=== PATIENT | female | born 1975 | race African-American/Black ===

== ENCOUNTER 2016-06-24 21:40 | Emergency (ER) | payer MEDICARE, OTHER ==
[~2016-06-24] VITALS: Ht 162.6 cm; Wt 78.5 kg
[~2016-06-24 21:40] MED LIST: CYCL10TA2 PO; GABA600T2 PO; HYDR-2762 PO; HYDR25TA9 PO; MELO-156 PO; OXYC-323 PO; PRED50TA PO; TRAZ150T55 PO; TRIA15CR3 TP
[2016-06-24 21:53] VITALS: BP 163/105
--- NOTE | 2016-06-24 22:21 | PHYS DOC ---
Past Medical History Past Medical History: Anxiety, Asthma, Hypertension, Migraines, Other Additional Past Medical Histor: chronic back pain, gastritis, IBS, hernia Past Surgical History: Cholecystectomy, , Other Additional Past Surgical Histo: back surgery, carpal tunnel, hernia removal Alcohol Use: Occasionally Drug Use: Marijuana Adult General Chief Complaint Chief Complaint: SKIN RASH/ABSCESS [facility] HPI Patient is a 40 year old female presents emergency department stating that she has an abscess on her left lower buttocks area. She states that she noticed it tonight. She states that she squeezed the area and got a little bit of yellow drainage and discharge from the site. She denies any fever, chills or any nausea or vomiting. Review of Systems Review of Systems Constitutional: Denies fever or chills [] Eyes: Denies change in visual acuity, redness, or eye pain [] HENT: Denies nasal congestion or sore throat [] Respiratory: Denies cough or shortness of breath [] Cardiovascular: No additional information not addressed in HPI [] GI: Denies abdominal pain, nausea, vomiting, bloody stools or diarrhea [] : Denies dysuria or hematuria [] Musculoskeletal: Denies back pain or joint pain [] Integument: Denies rash or skin lesions. Abscess to the left buttock area Neurologic: Denies headache, focal weakness or sensory changes [] Current Medications Current Medications Current Medications Medications (Trade) Dose Ordered Sig/Levy Start Time Stop Time Status Last Admin Dose Admin Diphtheria/ Tetanus/Acell Pertussis (Boostrix) 0.5 ml ONCE ONCE 06/24/16 22:30 06/24/16 22:30 DC Lidocaine/Sodium Bicarbonate (Buffered Lidocaine 1%) 20 ml 1X ONCE 06/24/16 23:00 06/24/16 23:01 06/24/16 22:39 20 ML Allergies Allergies Allergies Coded Allergies Type Severity Reaction Last Updated Verified No Known Drug Allergies 05/31/14 No Physical Exam Physical Exam Constitutional: Well developed, well nourished, no acute distress, non-toxic appearance. [] HENT: Normocephalic, atraumatic, bilateral external ears normal, oropharynx moist, no oral exudates, nose normal. [] Eyes: PERRLA, EOMI, conjunctiva normal, no discharge. [] Neck: Normal range of motion, no tenderness, supple, no stridor. [] Cardiovascular:Heart rate regular rhythm, no murmur [] Lungs & Thorax: Bilateral breath sounds clear to auscultation [] Skin: Warm, dry, no erythema, no rash. Patient with abscess to the left buttock area size approximately pea size. Back: No tenderness Extremities: No tenderness, no cyanosis, no clubbing, ROM intact, no edema. [] Neurologic: Alert and oriented X 3, normal motor function, normal sensory function, no focal deficits noted. [] Psychologic: Affect normal, judgement normal, mood normal. [] Current Patient Data Vital Signs Vital Signs Date Time Temp Pulse Resp B/P Pulse Ox O2 Delivery O2 Flow Rate FiO2 06/24/16 21:53 98.2 78 18 100 Room Air 98.2 EKG EKG [] Radiology/Procedures Radiology/Procedures [] Course & Med Decision Making Course & Med Decision Making Pertinent Labs and Imaging studies reviewed. (See chart for details) Patient was encouraged to use warm moist packs to the area 4 times a day for 20 minutes at a time. She'll be placed on Bactrim 1 tablet twice a for the next 10 days she'll be provided with hydrocodone in which she was instructed will cause drowsiness do not take any be alert and oriented. Patient was also instructed to use Tylenol or ibuprofen. Patient will be discharged home in stable condition signs symptoms to return back to emergency department been provided. [] Dragon Disclaimer Dragon Disclaimer This electronic medical record was generated, in whole or in part, using a voice recognition dictation system. Departure Departure Impression: Primary Impression: Left buttock abscess Disposition: 01 HOME, SELF-CARE Condition: STABLE Referrals: TRINIDAD BUTLER (PCP) Patient Instructions: Abscess, [id number] Additional Instructions: Activity as tolerated. Hydrocodone will cause drowsiness do not take any be alert and oriented. Tylenol and ibuprofen may also help with pain and discomfort. Medications as prescribed. Warm moist packs to the area 4 times a day for 20 minutes at a time. Keep the area clean and dry. Follow-up to primary care physician next 3-5 days. Return back to emergency prior signs symptoms of become worse. Scripts Hydrocodone/Apap 5-325 ([place] 5-325 Tablet)1 Each Tablet1 Tab PO PRN Q6HRS PRN PAIN #5 TAB Prov:GUILLERMO VIEYRA NP 06/24/16 Sulfamethoxazole/Trimethoprim (Bactrim Ds Tablet)1 Each Tablet1 Tab PO BID #20 TAB Prov:GUILLERMO VIEYRA NP 06/24/16 Incision and Drainage Incision and Drainage : Site: left buttock Blade Size: 11 I & D Procedure: betadine prep Progress Site was injected with 2 mL of 1% lidocaine. Area was cleaned with Betadine. # 11 blade was used to incise the area with small amount of thick yellow drainage noted. Dressing applied by nursing staff GUILLERMO VIEYRA NP Jun 24, 2016 22:21
[2016-06-24] MEDS ORDERED: DIPHTH,PERTUSS(ACELL),TET TOX 0.5 ML DISP.SYRIN. VAX IM ONE (22:30)
[2016-06-24] MEDS ORDERED: SULF1TAB24 PO (22:49)
[2016-06-24] MEDS ORDERED: HYDR-971 PO (22:49)
[2016-06-24] MEDS ORDERED: LIDOCAINE 1% / SOD BICARB 8.4% 20 ML VIAL. IJ ONE (23:00)
== END 2016-06-24 22:53 | disposition home or self-care (01) ==
LOC: ER 21:40
DX: L02.31 Cutaneous abscess of buttock (principal); K58.9 Irritable bowel syndrome, unspecified; J45.909 Unspecified asthma, uncomplicated; I10 Essential (primary) hypertension; G89.29 Other chronic pain; F41.9 Anxiety disorder, unspecified; G43.909 Migraine, unspecified, not intractable, without status migrainosus; F12.10 Cannabis abuse, uncomplicated
CPT/HCPCS: 10060; 99283-25

== ENCOUNTER → 2016-10-08 | Outpatient (CLI) | payer MEDICARE, OTHER ==
[~2016-10-08] MED LIST changes: +HYDR-971 PO; -MELO-156 PO; +MELO7.5T29 PO; +SULF1TAB24 PO; +TRAZ150T49 PO; -TRAZ150T55 PO
--- NOTE | 2016-10-08 10:26 | RAD ---
EXAM: DIGITAL DIAGNOSTIC RT, BREAST RIGHT HISTORY: Follow-up right breast mass. COMPARISON: Bilateral mammogram 04/28/2016. Right breast ultrasound 04/28/2016. This study was interpreted with the benefit of Computerized Aided Detection (CAD). The breast parenchyma shows scattered fibroglandular densities. Breast parenchyma level B. FINDINGS: The previously identified posterior small, well-circumscribed mass in the right breast retroareolar region to 6:00 is less apparent on current examination, possibly obscured by overlying breast tissue and positioning. No suspicious dominant mass, suspicious microcalcifications, or architectural distortion is identified in either breast. Further evaluation was performed of the right breast by medicine technologist. Ultrasound imaging was performed of the right breast at the 2:30, 5 cm from nipple. Again seen is a complex cystic lesion with some internal echogenicity. This has maximum dimension of 5 mm (previously 4 mm). This is thought unchanged. Additional imaging was performed of the right breast at 4:00, 3 cm from nipple. A cystic, mildly complex lesion is also seen which measures 4 mm in maximum dimension (previously maximum dimension was 8 mm). Any differences may be due to plane of imaging and/or interval reduction in size. IMPRESSION: 1. Previously identified mammographic mass is less apparent on current examination, which may be from positioning/obscuration by overlying breast parenchyma. 2. 2 small mildly complex cyst cystic lesions identified in the right breast on ultrasound are similar to slightly decreased in size from previous study. 3. Recommend follow-up bilateral diagnostic mammogram and right breast ultrasound in 6 months. BI-RADS CATEGORY: 3 PROBABLY BENIGN FINDING(S)-SHORT INTERVAL FOLLOW-UP SUGGESTED RECOMMENDED FOLLOW-UP: 6M 6 MONTH FOLLOW-UP PQRS compliance statement: Patient information was entered into a reminder system with a target due date for the next mammogram. Mammography is a sensitive method for finding small breast cancers, but it does not detect them all and is not a substitute for careful clinical examination. A negative mammogram does not negate a clinically suspicious finding and should not result in delay in biopsying a clinically suspicious abnormality. "Our facility is accredited by the [employer] Mammography Program."
== END | disposition home or self-care (01) ==
LOC: MAMMO 09:40
PROVIDERS: ATTEND Family Medicine
DX: R92.8 Other abnormal and inconclusive findings on diagnostic imaging of breast (principal); N63 Unspecified lump in breast
CPT/HCPCS: 76641; G0206; 77065

== ENCOUNTER 2016-10-21 09:33 | Emergency (ER) | payer MEDICARE, OTHER ==
[~2016-10-21] VITALS: Ht 160 cm; Wt 78.5 kg
[2016-10-21 09:40] VITALS: BP 139/80
--- NOTE | 2016-10-21 10:24 | PHYS DOC ---
Past Medical History Past Medical History: Anxiety, Asthma, Hypertension, Migraines, Other Additional Past Medical Histor: chronic back pain, gastritis, IBS, hernia Past Surgical History: Cholecystectomy, , Other Additional Past Surgical Histo: back surgery, carpal tunnel, hernia removal Alcohol Use: Occasionally Drug Use: Marijuana Adult General Chief Complaint Chief Complaint: ABDOMINAL PAIN HPI HPI Patient is a 41 year old female who presents with vaginal bleeding and crampy lower abdominal and back pain. Patient states she finished her usual menstrual period about 1 or 1-1/2 weeks ago. It was normal. She then started having vaginal spotting and light vaginal bleeding which does seem like menstrual bleeding but it's at a abnormal time for her so she was concerned. She did not have an abnormal amount of vaginal discharge before she started bleeding. Her cramping and pain does not seem unusual for a menstrual period. She has had unprotected sex, does not believe she is but she could be. She denies nausea or vomiting, fever or chills. She's had no UTI symptoms. Patient is not on any kind of hormones, she does not have implanted or IUD for control. Review of Systems Review of Systems Constitutional: Denies fever or chills [] Eyes: Denies change in visual acuity, redness, or eye pain [] HENT: Denies nasal congestion or sore throat [] Respiratory: Denies cough or shortness of breath [] GI: As in history of present illness : As in history of present illness Musculoskeletal: Denies back pain or joint pain [] Integument: Denies rash or skin lesions [] Neurologic: Denies headache, focal weakness or sensory changes [] Allergies Allergies Allergies Coded Allergies Type Severity Reaction Last Updated Verified No Known Drug Allergies 05/31/14 No Physical Exam Physical Exam Constitutional: Well developed, well nourished, no acute distress, non-toxic appearance. Alert, mentating normally. HENT: Normocephalic, atraumatic, bilateral external ears normal, nose normal. [ ] Eyes: conjunctiva normal, no discharge. [] Neck: Normal range of motion, no stridor. [] Abdomen: soft, no tenderness, no masses, no pulsatile masses. Nondistended. : Normal external genitalia. Vaginal exam with small amount of red blood. Cervix normal in appearance without cervicitis. Bimanual exam: No cervical motion tenderness. Uterus not enlarged or tender. Adnexa without masses or tenderness. Skin: Warm, dry, no erythema, no rash. [] Extremities: No tenderness, no cyanosis, no clubbing, ROM intact, no edema. [] Neurologic: Alert and oriented X 3, normal motor function, normal sensory function, no focal deficits noted. [] Current Patient Data Vital Signs Vital Signs Date Time Temp Pulse Resp B/P (MAP) Pulse Ox O2 Delivery O2 Flow Rate FiO2 10/21/16 09:40 98.5 89 16 139/80 (99) 99 Room Air 98.5 Lab Values Laboratory Tests Test 10/21/16 08:56 POC Urine HCG, Qualitative Hcg negative (Negative) EKG EKG [] Radiology/Procedures Radiology/Procedures [] Course & Med Decision Making Course & Med Decision Making Pertinent Labs and Imaging studies reviewed. (See chart for details) 41-year-old female who presents with vaginal bleeding and some cramping that is not at a typical time and her monthly cycle for her menstrual period. test negative. Pelvic exam is entirely benign and normal. GC and chlamydia were sent. I don't suspect that the patient has PID or needs antibiotics from her exam. I reassured the patient that sometimes people have vaginal bleeding at abnormal times, if she continues to do so she should see her [facility] specialist. See instructions for plan. [] Dragon Disclaimer Dragon Disclaimer This electronic medical record was generated, in whole or in part, using a voice recognition dictation system. Departure Departure Impression: Primary Impression: Vaginal bleeding between periods Disposition: HOME, SELF-CARE Condition: STABLE Referrals: TRI CERNA Jr, MD Patient Instructions: Abnormal Uterine Bleeding Additional Instructions: As we discussed, your test was negative. Your pelvic exam was very normal. I did send cultures for STDs. It does not appear that you have any kind of infection with a normal pelvic exam. As we discussed, it is pretty common to have bleeding at a time that is not a "normal period." If this just happens once and you go back to having normal periods, I would not worry about it. If this happens more than once or you have other irregular bleeding, you should see a [facility] doctor. I gave you a referral phone number, or you could try going to the health Department or [facility]. As we discussed, consider protection from since you are sexually active and do not want to get . JES MURCIA MD Oct 21, 2016 10:24
== END 2016-10-21 10:20 | disposition home or self-care (01) ==
LOC: ER 09:33
DX: N93.8 Other specified abnormal uterine and vaginal bleeding (principal); R10.30 Lower abdominal pain, unspecified; M54.9 Dorsalgia, unspecified; F41.9 Anxiety disorder, unspecified; J45.909 Unspecified asthma, uncomplicated; I10 Essential (primary) hypertension; G89.29 Other chronic pain; K58.9 Irritable bowel syndrome, unspecified; G43.909 Migraine, unspecified, not intractable, without status migrainosus; F12.10 Cannabis abuse, uncomplicated; Z90.49 Acquired absence of other specified parts of digestive tract
CPT/HCPCS: 81025; 87491; 87591; 99284

== ENCOUNTER 2017-01-22 18:43 | Emergency (ER) | payer MEDICARE, OTHER ==
[~2017-01-22] VITALS: Ht 162.6 cm; Wt 78.5 kg
[2017-01-22 20:01] VITALS: BP 143/89
--- NOTE | 2017-01-22 20:27 | PHYS DOC ---
Past Medical History Past Medical History: Anxiety, Asthma, Hypertension, Migraines, Other Additional Past Medical Histor: chronic back pain, gastritis, IBS, hernia Past Surgical History: Cholecystectomy, , Other Additional Past Surgical Histo: back surgery, carpal tunnel, hernia removal Alcohol Use: Occasionally Drug Use: Marijuana Adult General Chief Complaint Chief Complaint: DENTAL PROBLEM [facility] HPI Patient is a 41 year old female presents to the emergency department stating that she has having dental pain and discomfort. She states that she has a cracked tooth in which she's been doing with the pain for approximately 2 weeks. The #12 tooth appears to be cracked. Patient states that she has been taking Percocet in which she has for back pain and discomfort. Patient states that she has not had any fever, chills or any nausea or vomiting. Patient states she has not set up an appointment yet with a dentist. Review of Systems Review of Systems Constitutional: Denies fever or chills [] Eyes: Denies change in visual acuity, redness, or eye pain [] HENT: Denies nasal congestion or sore throat. Complaint of dental pain and discomfort. Respiratory: Denies cough or shortness of breath [] Cardiovascular: No additional information not addressed in HPI [] GI: Denies abdominal pain, nausea, vomiting, bloody stools or diarrhea [] : Denies dysuria or hematuria [] Musculoskeletal: Denies back pain or joint pain [] Integument: Denies rash or skin lesions [] Neurologic: Denies headache, focal weakness or sensory changes [] Endocrine: Denies polyuria or polydipsia [] Allergies Allergies Allergies Coded Allergies Type Severity Reaction Last Updated Verified No Known Drug Allergies 05/31/14 No Physical Exam Physical Exam Constitutional: Well developed, well nourished, no acute distress, non-toxic appearance. [] HENT: Normocephalic, atraumatic, bilateral external ears normal, oropharynx moist, no oral exudates, nose normal. Right tympanic membrane appears to be normal left tympanic membrane appears to be slightly bulging. Throat with no erythematous no exudate noted. Patient with #12 tooth that appears to be cracked. No redness or tenderness noted around the gumline. Patient with maxillary and facial tenderness noted bilaterally over the sinus area Eyes: PERRLA, EOMI, conjunctiva normal, no discharge. [] Neck: Normal range of motion, no tenderness, supple, no stridor. [] Cardiovascular:Heart rate regular rhythm, no murmur [] Lungs & Thorax: Bilateral breath sounds clear to auscultation [] Skin: Warm, dry, no erythema, no rash. [] Back: No tenderness Extremities: No tenderness, no cyanosis, no clubbing, ROM intact, no edema. [] Neurologic: Alert and oriented X 3, normal motor function, normal sensory function, no focal deficits noted. [] Psychologic: Affect normal, judgement normal, mood normal. [] Current Patient Data Vital Signs Vital Signs Date Time Temp Pulse Resp B/P (MAP) Pulse Ox O2 Delivery O2 Flow Rate FiO2 01/22/17 20:01 97.8 72 18 100 Room Air 97.8 EKG EKG [] Radiology/Procedures Radiology/Procedures [] Course & Med Decision Making Course & Med Decision Making Pertinent Labs and Imaging studies reviewed. (See chart for details) Patient states that she had taken Percocet at home with minimal relief. Recommended dental wax [id number]. She will be placed on Augmentin for sinusitis infection. Recommended following up with her dentist within the next week. Signs symptoms to return back to emergency department been provided. Patient agrees with discharge instructions treatment regimens and follow-up recommendations. All questions and concerns been answered at patient's bedside. [] Dragon Disclaimer Dragon Disclaimer This electronic medical record was generated, in whole or in part, using a voice recognition dictation system. Departure Departure Impression: Primary Impression: Sinusitis Additional Impression: Pain, dental Disposition: HOME, SELF-CARE Condition: STABLE Referrals: TRINIDAD BUTLER (PCP) Patient Instructions: Dental Pain, [id number], Sinusitis, [id number] Additional Instructions: Activity as tolerated. Medications as prescribed. Dental wax may be purchased [id number] to be placed over the tooth to help prevent increased pain and discomfort. You may also take Sudafed [id number] to help with sinus pressure. He may also use Mucinex DM to help with the sinus pain and discomfort by providing drainage. Follow-up the primary care physician in the week. Follow-up to dentist within the next week as well. Return back to emergency prior signs symptoms of become worse. Problem Qualifiers Primary Impression: Sinusitis Sinusitis location: unspecified location Chronicity: unspecified Qualified Codes: J32.9 - Chronic sinusitis, unspecified GUILLERMO VIEYRA [employer] Jan 22, 2017 20:27
[2017-01-22] MEDS ORDERED: AMOX1TAB61 PO (20:38)
== END 2017-01-22 20:38 | disposition home or self-care (01) ==
LOC: ER 18:43
DX: K08.89 Other specified disorders of teeth and supporting structures (principal); J32.9 Chronic sinusitis, unspecified; K03.81 Cracked tooth; G89.29 Other chronic pain; J45.909 Unspecified asthma, uncomplicated; I10 Essential (primary) hypertension; K58.9 Irritable bowel syndrome, unspecified; G43.909 Migraine, unspecified, not intractable, without status migrainosus
CPT/HCPCS: 99283

== ENCOUNTER 2017-04-06 23:16 | Emergency (ER) | payer MEDICARE ==
[~2017-04-06] VITALS: Ht 160 cm; Wt 78.5 kg
[~2017-04-06 23:16] MED LIST changes: +AMOX1TAB61 PO
[2017-04-07] MEDS ORDERED: diphenhydrAMINE 50 MG/ML VIAL IVP ONE
[2017-04-07] MEDS ORDERED: IV NORMAL SALINE 1000ML BAG 1,000 ML IV ONE
[2017-04-07] MEDS ORDERED: METOCLOPRAMIDE HCL 10 MG/2 ML VIAL. IV ONE
[2017-04-07] MEDS ORDERED: PROCHLORPERAZINE 10 MG/2 ML VIAL. IV ONE
[2017-04-07 02:44] VITALS: BP 128/72
--- NOTE | 2017-04-07 05:35 | PHYS DOC ---
Past Medical History Past Medical History: Anxiety, Asthma, Hypertension, Migraines, Other Additional Past Medical Histor: chronic back pain, gastritis, IBS, hernia Past Surgical History: Cholecystectomy, , Other Additional Past Surgical Histo: back surgery, carpal tunnel, hernia removal Alcohol Use: None Drug Use: None Adult General Chief Complaint Chief Complaint: HEADACHE HPI HPI Patient is a 41 year old AA female with history of chronic recurrent migraines who presents with acute onset migraine starting several hours prior to arrival. Headache is retro-orbital, radiates to temporal region. It is describing swelling and is associated nausea and light sensitivity and is consistent with previous migraine. Patient take a triptan with limited improvement. Reports continued nausea. No fever chills, neck pain, stiffness, rash. No other acute symptoms or complaints. [] Review of Systems Review of Systems ROS as per HPI. [] All other systems were reviewed and found to be within normal limits, except as documented in this note. Current Medications Current Medications Current Medications Medications (Trade) Dose Ordered Sig/Levy Start Time Stop Time Status Last Admin Dose Admin Diphenhydramine HCl (Benadryl) 50 mg 1X ONCE 04/07/17 00:00 04/07/17 00:01 DC 04/07/17 00:40 50 MG Metoclopramide HCl (Reglan Vial) 10 mg 1X ONCE 04/07/17 00:00 04/07/17 00:01 DC 04/07/17 00:39 10 MG Prochlorperazine Edisylate (Compazine) 10 mg 1X ONCE 04/07/17 00:00 04/07/17 00:01 DC 04/07/17 00:39 10 MG Sodium Chloride 1,000 ml @ 1,000 mls/hr 1X ONCE 04/07/17 00:00 04/07/17 00:59 DC 04/07/17 00:40 1,000 MLS/HR Allergies Allergies Allergies Coded Allergies Type Severity Reaction Last Updated Verified No Known Drug Allergies 05/31/14 No Physical Exam Physical Exam Constitutional: Well developed, well nourished, no acute distress, non-toxic appearance. [] HENT: Normocephalic, atraumatic, bilateral external ears normal, oropharynx moist, nose normal. [] Eyes: PERRLA, EOMI, photosensitivity. [] Neck: Normal range of motion, no tenderness. [] Cardiovascular:Heart rate regular rhythm, no murmur [] Lungs & Thorax: Bilateral breath sounds clear to auscultation [] Abdomen: Bowel sounds normal, soft. [] Skin: Warm, dry, no erythema, no rash. [] Back: No tenderness. [] Extremities: No tenderness. [] Neurologic: Alert and oriented X 3, cranial nerves II through XII grossly intact , normal motor function, normal sensory function, no focal deficits noted. [] Psychologic: Affect normal, judgement normal, mood normal. [] Current Patient Data Vital Signs Vital Signs Date Time Temp Pulse Resp B/P (MAP) Pulse Ox O2 Delivery O2 Flow Rate FiO2 04/07/17 02:44 70 20 100 04/07/17 00:00 98.5 158/87 (110) Room Air 98.5 Lab Values Laboratory Tests Test 04/06/17 23:44 POC Urine HCG, Qualitative Hcg negative (Negative) EKG EKG [] Radiology/Procedures Radiology/Procedures [] Course & Med Decision Making Course & Med Decision Making Pertinent Labs and Imaging studies reviewed. (See chart for details) [Neurologic deficits. Migraine resolved with treatment in the emergency department. Recommend home rest, he is to be follow-up.] Dragon Disclaimer Dragon Disclaimer This electronic medical record was generated, in whole or in part, using a voice recognition dictation system. Departure Departure Impression: Primary Impression: Migraine headache Disposition: 01 HOME, SELF-CARE Condition: GOOD Patient Instructions: Migraine Headache, [id number] Additional Instructions: Please go home and rest and increase your fluid intake. Follow up with your PCP. Return to the ED if new or worsening symptoms. TAMMIE LOW DO Apr 07, 2017 05:35
== END 2017-04-07 02:30 | disposition home or self-care (01) ==
LOC: ER 23:16
DX: G43.909 Migraine, unspecified, not intractable, without status migrainosus (principal); F41.9 Anxiety disorder, unspecified; J45.909 Unspecified asthma, uncomplicated; I10 Essential (primary) hypertension; G89.29 Other chronic pain; Z90.49 Acquired absence of other specified parts of digestive tract
CPT/HCPCS: 81025; 96361; 96374; 96375; 99284; J0780; J1200; J2765; J7030

== ENCOUNTER → 2017-06-20 | Outpatient (CLI) | payer BC | END | disposition home or self-care (01) | LOC: MAMMO 13:23 | DX: N63.10 Unspecified lump in the right breast, unspecified quadrant (principal); N63.20 Unspecified lump in the left breast, unspecified quadrant | CPT/HCPCS: 76641; 77066 ==

== ENCOUNTER 2017-07-31 14:02 | Emergency (ER) | payer BC ==
[2017-07-31 14:23] LABS: URINE HCG POC HCG NEGATIVE (Negative)
[2017-07-31 14:54] LABS: ADD MAN DIFF? NO
[2017-07-31 14:56] LABS: BASO # 0.1 x10^3/uL (0.0-0.2); BASO % 0 % (0-3); EOS # 0.1 x10^3/uL (0.0-0.7); EOS % 1 % (0-3); HEMATOCRIT 30.8 % (36.0-47.0); HEMOGLOBIN 9.9 g/dL (12.0-15.5); LYMPH # 1.9 x10^3/uL (1.0-4.8); LYMPH % 13 % (24-48); MEAN CORPUSCULAR HEMOGLOBIN 28 pg (25-35); MEAN CORPUSCULAR HGB CONC 32 g/dL (31-37); MEAN CORPUSCULAR VOLUME 85 fL (79-100); MONO # 1.3 x10^3/uL (0.0-1.1); MONO % 9 % (0-9); NEUT % 77 % (31-73); PLATELET COUNT 362 x10^3/uL (140-400); RED BLOOD COUNT 3.62 x10^6/uL (3.50-5.40); RED CELL DISTRIBUTION WIDTH 17.4 % (11.5-14.5); WHITE BLOOD COUNT 14.3 x10^3/uL (4.0-11.0)
[2017-07-31 14:58] LABS: BILIRUBIN,URINE NEGATIVE (NEG); CLARITY,URINE TURBID; COLOR,URINE YELLOW; GLUCOSE,URINE NEGATIVE (NEG); NITRITE,URINE POSITIVE (NEG); PH,URINE 5.5; PROTEIN,URINE 100 mg/dL (NEG-TRACE); UROBILINOGEN,URINE 0.2 mg/dL (0.2 mg/dL)
[2017-07-31 15:08] LABS: ANION GAP 8 (6-14); BLOOD UREA NITROGEN 12 mg/dL (7-20); BUN/CREATININE RATIO 17 (6-20); CALCIUM 8.5 mg/dL (8.5-10.1); CARBON DIOXIDE 27 mmol/L (21-32); CHLORIDE 103 mmol/L (98-107); CREATININE 0.7 mg/dL (0.6-1.0); GFR 111.6; GLUCOSE 110 mg/dL (70-99); POTASSIUM 3.5 mmol/L (3.5-5.1); SODIUM 138 mmol/L (136-145)
[2017-07-31 15:16] LABS: ALBUMIN 3.3 g/dL (3.4-5.0); ALBUMIN/GLOBULIN RATIO 0.7 (1.0-1.7); ALK PHOS 109 U/L (46-116); ALT (SGPT) 13 U/L (14-59); AST (SGOT) 11 U/L (15-37); LIPASE 147 U/L (73-393); TOTAL BILIRUBIN 0.4 mg/dL (0.2-1.0); TOTAL PROTEIN 7.8 g/dL (6.4-8.2)
[2017-07-31 15:31] LABS: BACTERIA,URINE MANY /HPF (0-FEW); RBC,URINE TNTC /HPF (0-2); SQUAMOUS EPITHELIAL CELL,UR FEW /LPF; WBC,URINE TNTC /HPF (0-4)
[2017-07-31] MEDS: IV NORMAL SALINE 1000ML BAG 1,000 ML IV (15:31)
[2017-07-31] MEDS: ONDANSETRON PF 4 MG/2 ML VIAL. IV (15:31)
[2017-07-31] MEDS: fentaNYL PF VIAL 100 MCG/2 ML VIAL IV (15:32)
[2017-07-31] MEDS: AZITHROMYCIN 250 MG TABLET. PO (17:00)
[2017-08-02 14:23] LABS: CHLAMYDIA PROBE Negative (Negative); GC PROBE Negative (Negative)
== END 2017-07-31 17:39 | disposition home or self-care (01) ==
LOC: ER 14:02
DX: N39.0 Urinary tract infection, site not specified (principal); N76.0 Acute vaginitis; B96.89 Other specified bacterial agents as the cause of diseases classified elsewhere; F41.9 Anxiety disorder, unspecified; J45.909 Unspecified asthma, uncomplicated; I10 Essential (primary) hypertension; G89.29 Other chronic pain; G43.909 Migraine, unspecified, not intractable, without status migrainosus; K58.9 Irritable bowel syndrome, unspecified; Z90.49 Acquired absence of other specified parts of digestive tract; Z87.891 Personal history of nicotine dependence
CPT/HCPCS: 36415; 80053; 81001; 81025; 83690; 85025; 87086; 87186; 87491; 87591; 96361; 96365; 96375; 99284-25; J0690; J2405; J3010; J7030; Q0111; Q0144

== ENCOUNTER 2019-03-31 13:03 | Emergency (ER) | payer BC, MEDICARE ==
[~2019-03-31] VITALS: Ht 162.6 cm; Wt 75.7 kg
[~2019-03-31 13:03] MED LIST changes: -GABA600T2 PO; +GABA600T7 PO; +HYDR-2145 PO; -HYDR-2762 PO; +HYDR-2765 PO; +HYDR-3164 PO; -HYDR-971 PO; -HYDR25TA9 PO; +METR500T PO; -OXYC-323 PO; +OXYC1TAB15 PO
[2019-03-31 13:36] VITALS: BP 156/95
[2019-03-31] MEDS ORDERED: KETOROLAC 30 MG/ML VIAL. IM STA (14:22)
[2019-03-31] MEDS ORDERED: LIDOCAINE 2% VISCOUS 15 ML SOLUTION. SWSW STA (14:22)
[2019-03-31] MEDS ORDERED: MAG HYDROX/ALUMINUM HYD/SIMETH 30 ML ORAL.SUSP PO STA (14:22)
[2019-03-31] MEDS ORDERED: AMOX1TAB61 PO (14:40)
--- NOTE | 2019-03-31 14:42 | PHYS DOC ---
Past Medical History Past Medical History: Anxiety, Asthma, Hypertension, Migraines, Other Additional Past Medical Histor: chronic back pain, gastritis, IBS, hernia Past Surgical History: Cholecystectomy, , Other Additional Past Surgical Histo: back surgery, L carpal tunnel, hernia removal Alcohol Use: None Drug Use: None Adult General Chief Complaint Chief Complaint: DENTAL PROBLEM HPI HPI Patient is a 43 year old female that presents with lower right-sided dental pain has been ongoing for 3 days. The patient's been taking Tylenol and oxycodone at home. The patient states that she's noticed mild facial swelling on the right side of her face. Rates her pain as 10 out of 10 in severity and sharp. Review of Systems Review of Systems Constitutional: Denies fever or chills [] Eyes: Denies change in visual acuity, redness, or eye pain [] HENT: Reports dental pain. Respiratory: Denies cough or shortness of breath [] Cardiovascular: No additional information not addressed in HPI [] GI: Denies abdominal pain, nausea, vomiting, bloody stools or diarrhea [] : Denies dysuria or hematuria [] Musculoskeletal: Denies back pain or joint pain [] Integument: Denies rash or skin lesions [] Neurologic: Denies headache, focal weakness or sensory changes [] Endocrine: Denies polyuria or polydipsia [] Complete systems were reviewed and found to be within normal limits, except as documented in this note. Current Medications Current Medications Current Medications Medications (Trade) Dose Ordered Sig/Levy Start Time Stop Time Status Last Admin Dose Admin Al Hydroxide/Mg Hydroxide (Mylanta Plus Xs) 30 ml 1X STAT 03/31/19 14:22 03/31/19 14:25 DC 03/31/19 14:32 30 ML Ketorolac Tromethamine (Toradol 30mg Vial) 30 mg 1X STAT 03/31/19 14:22 03/31/19 14:25 DC 03/31/19 14:32 30 MG Lidocaine HCl (Viscous Lidocaine) 15 ml 1X STAT 03/31/19 14:22 03/31/19 14:25 DC 03/31/19 14:32 15 ML Allergies Allergies Allergies Coded Allergies Type Severity Reaction Last Updated Verified No Known Drug Allergies 05/31/14 No Physical Exam Physical Exam Constitutional: Well developed, well nourished, no acute distress, non-toxic appearance. [] HENT: Normocephalic, atraumatic, bilateral external ears normal, oropharynx moist, no oral exudates, nose normal. Cavity to tooth 32, and 30. Eyes: PERRLA, EOMI, conjunctiva normal, no discharge. [] Neck: Normal range of motion, no tenderness, supple, no stridor. [] Cardiovascular:Heart rate regular rhythm, no murmur [] Lungs & Thorax: Bilateral breath sounds clear to auscultation [] Abdomen: Bowel sounds normal, soft, no tenderness, no masses, no pulsatile masses. [] Skin: Warm, dry, no erythema, no rash. [] Back: No tenderness, no CVA tenderness. [] Extremities: No tenderness, no cyanosis, no clubbing, ROM intact, no edema. [] Neurologic: Alert and oriented X 3, normal motor function, normal sensory function, no focal deficits noted. [] Psychologic: Affect normal, judgement normal, mood normal. [] EKG EKG [] Radiology/Procedures Radiology/Procedures [] Course & Med Decision Making Course & Med Decision Making Pertinent Labs and Imaging studies reviewed. (See chart for details) Will give Dental Balls, Toradol, and d/c home with Augmentin. Discussed she needs to follow up with Dentist. Dragon Disclaimer Dragon Disclaimer This electronic medical record was generated, in whole or in part, using a voice recognition dictation system. Departure Departure Impression: Primary Impression: Pain, dental Disposition: 01 HOME, SELF-CARE Condition: STABLE Referrals: TRINIDAD BUTLER (PCP) Patient Instructions: Carbamide Peroxide dental solution, Dental Caries Additional Instructions: Thank you for visiting [facility]. We appreciate you trusting us with your care. If any additional problems come up don't hesitate to return to visit us. Please follow up with your primary care provider so they can plan additional care if needed and know about the problem that you had. If symptoms worsen come back to the Emergency Department. Any concerning symptoms that start such as chest pain, shortness of air, weakness or numbness on one side of the body, running high fevers or any other concerning symptoms return to the ER. You have been prescribed an antibiotic today to help fight your infection. Please take all of the antibiotic as directed. If after 48 hours the infection is not improving, please return for more care. If the infection worsens, return to ER for additional care. Please follow up with dentist as soon as possible. Scripts Amoxicillin/Potassium Clav (AUGMENTIN 875-125 TABLET) 1 Each Tablet 1 TAB PO BID for 7 Days, #14 TAB 0 Refills Prov: JAMES GO APRN 03/31/19 JAMES GO APRN Mar 31, 2019 14:42
== END 2019-03-31 14:48 | disposition home or self-care (01) ==
LOC: ER 13:03
DX: K08.89 Other specified disorders of teeth and supporting structures (principal); R22.0 Localized swelling, mass and lump, head; J45.909 Unspecified asthma, uncomplicated; I10 Essential (primary) hypertension; G43.909 Migraine, unspecified, not intractable, without status migrainosus; G89.29 Other chronic pain; K58.9 Irritable bowel syndrome, unspecified
CPT/HCPCS: 96372; 99283; J1885

== ENCOUNTER 2020-09-01 09:42 | Emergency (ER) | payer MEDICARE, OTHER ==
[~2020-09-01] VITALS: Ht 165.1 cm; Wt 155.0 kg
[2020-09-01 10:30] VITALS: BP 142/85
[2020-09-01] MEDS ORDERED: POLY10DR3 RIGHTEYE (10:40)
--- NOTE | 2020-09-01 10:40 | ED.ADGEN ---
Past Medical History Past Medical History: Anxiety, Asthma, Hypertension, Migraines, P.U.D., Other Additional Past Medical Histor: chronic back pain,gastritis,IBS,hernia Past Surgical History: Cholecystectomy, , Other Additional Past Surgical Histo: back surgery,L carpal tunnel,hernia removal Smoking Status: Current Every Day Smoker Alcohol Use: Occasionally Drug Use: None General Adult EDM: Chief Complaint: EYE PROBLEMS HPI: HPI: Patient is a 44 year old AA female who presents emergency department with com plaints of right upper eyelid swelling since yesterday. Patient states that her right eye is somewhat itchy. She denies any decreased vision or burning sensation. She reports that the symptoms started after using some mascara 2 days ago. Patient states this morning her eye was crusted shut. She also noticed increased swelling to her eyelid today. She denies any itching. The patient currently rates her discomfort a 3 out of 10 on the pain scale, she denies any alleviating factors. Patient reports she tried applying warm moist packs to the area yesterday without any resolution of her symptoms. Review of Systems: Review of Systems: Complete ROS is negative unless otherwise noted in HPI. Allergies: Allergies: Allergies Coded Allergies Type Severity Reaction Last Updated Verified No Known Drug Allergies 05/31/14 No Physical Exam: PE: See Above Constitutional: Well developed, well nourished, no acute distress, non-toxic appearance. [] HENT: Normocephalic, atraumatic, bilateral external ears normal, nose normal. [] Eyes: PERRLA, EOMI, left eye conjunctiva normal, left eye no discharge; right eye: conjunctiva injected, moderate swelling to the upper eyelid with purulent discharge present [] Neck: Normal range of motion, no stridor. [] Cardiovascular:Heart rate regular rhythm Lungs & Thorax: Respirations even and unlabored, no retractions, no respiratory distress Skin: Warm, dry, no erythema, no rash. [] Extremities: No cyanosis, ROM intact, no edema. [] Neurologic: Alert and oriented X 3, no focal deficits noted. [] Psychologic: Affect normal, judgement normal, mood normal. [] Current Patient Data: Vital Signs: Vital Signs Date Time Temp Pulse Resp B/P (MAP) Pulse Ox O2 Delivery O2 Flow Rate FiO2 09/01/20 10:30 98.4 76 16 142/85 (104) 97 Room Air 98.4 EKG: EKG: [] Heart Score: C/O Chest Pain: No Risk Scores: Score 0 - 3: 2.5% MACE over next 6 weeks - Discharge Home Score 4 - 6: 20.3% MACE over next 6 weeks - Admit for Clinical Observation Score 7 - 10: 72.7% MACE over next 6 weeks - Early Invasive Strategies Radiology/Procedures: Radiology/Procedures: [] Course & Med Decision Making: Course & Med Decision Making Pertinent Labs and Imaging studies reviewed. (See chart for details) [] Dragon Disclaimer: Dragon Disclaimer: This electronic medical record was generated, in whole or in part, using a voice recognition dictation system. Departure Departure Impression: Primary Impression: Conjunctivitis Disposition: HOME / SELF CARE / HOMELESS Condition: STABLE Referrals: TRINIDAD BUTLER (PCP) Patient Instructions: Conjunctivitis (Viral and Bacterial) Additional Instructions: Fill the prescription(s) and use as directed. Apply warm, moist washcloths to eyes needed for comfort. Recommend use of baby shampoo to wash eyelids. Follow- up with your primary care doctor in 1-2 days. Return to the emergency room if your symptoms worsen. Scripts Polymyxin B Sulf/Trimethoprim (POLYMYXIN B-TMP EYE DROPS) 10 Ml Drops 1 DROP RIGHTEYE QID for 7 Days, #10 ML 0 Refills Prov: MALINA ATKINS APRN 09/01/20 Attending Signature Attending Signature I have participated in the care of this patient and I have reviewed and agree with all pertinent clinical information above including history, exam, and recommendations. Problem Qualifiers Primary Impression: Conjunctivitis Conjunctivitis type: acute Acute conjunctivitis type: unspecified Laterality: right Qualified Codes: H10.31 - Unspecified acute conjunctivitis, right eye MALINA ATKINS APRN Sep 01, 2020 10:40 JUAN RICHARDSON MD Sep 02, 2020 06:03
[2020-09-03] MEDS ORDERED: IBUP-1007 PO (14:51)
[2020-09-03] MEDS ORDERED: CYCL10TA2 PO (14:51)
== END 2020-09-01 10:51 | disposition home or self-care (01) ==
LOC: ER 09:42
DX: H10.9 Unspecified conjunctivitis (principal); R60.0 Localized edema; F41.9 Anxiety disorder, unspecified; J45.909 Unspecified asthma, uncomplicated; I10 Essential (primary) hypertension; G43.909 Migraine, unspecified, not intractable, without status migrainosus; F17.200 Nicotine dependence, unspecified, uncomplicated; G89.29 Other chronic pain; Z90.49 Acquired absence of other specified parts of digestive tract; Z98.890 Other specified postprocedural states
CPT/HCPCS: 99283

== ENCOUNTER 2021-07-07 12:59 | Emergency (ER) | payer MEDICARE, OTHER ==
[~2021-07-07] VITALS: Ht 162.6 cm; Wt 73.6 kg
[~2021-07-07 12:59] MED LIST changes: +CYCL10TA19 PO; -CYCL10TA2 PO; +IBUP-1007 PO; +POLY10DR3 RIGHTEYE
[2021-07-07 15:12] VITALS: BP 124/80
[2021-07-07] MEDS ORDERED: HYDR-2761 PO (15:28)
[2021-07-07] MEDS ORDERED: NAPR-514 PO (15:28)
[2021-07-07] MEDS ORDERED: AMOX500T PO (15:28)
--- NOTE | 2021-07-07 15:30 | PHYS DOC ---
Past Medical History Past Medical History: Anxiety, Asthma, Hypertension, Migraines, P.U.D., Other Additional Past Medical Histor: chronic back pain,gastritis,IBS,hernia Past Surgical History: Cholecystectomy, , Other Additional Past Surgical Histo: back surgery,L carpal tunnel,hernia removal Smoking Status: Current Every Day Smoker Alcohol Use: Occasionally Drug Use: None General Adult EDM: Chief Complaint: TOOTH ACHE OR PAIN HPI: HPI: Patient is a 45 year old female who presents to the ED today complaining of 9 out of 10 right upper tooth pain, symptoms began 2 days ago. Patient denies any fever, trismus. She states she has a hole in the tooth with infection and is planning to see a dentist and extraction. Patient states the pain is worse when she eats Review of Systems: Review of Systems: Constitutional: Denies fever or chills. [] HENT: Reports right upper tooth pain. Denies nasal congestion or sore throat. [] Musculoskeletal: Denies back pain or joint pain. [] Integument: Denies rash. [] Neurologic: Denies headache, focal weakness or sensory changes. [] Psychiatric: Denies depression or anxiety. [] Heart Score: C/O Chest Pain: N/A Risk Factors: Risk Factors: DM, Current or recent (<one month) smoker, HTN, HLP, family history of CAD, obesity. Risk Scores: Score 0 - 3: 2.5% MACE over next 6 weeks - Discharge Home Score 4 - 6: 20.3% MACE over next 6 weeks - Admit for Clinical Observation Score 7 - 10: 72.7% MACE over next 6 weeks - Early Invasive Strategies Allergies: Allergies: Allergies Coded Allergies Type Severity Reaction Last Updated Verified No Known Drug Allergies 05/31/14 No Physical Exam: PE: Constitutional: Well developed, well nourished, no acute distress, non-toxic appearance. [] HENT: Normocephalic, atraumatic, bilateral external ears normal, oropharynx moist, no oral exudates, nose normal. [] Tooth number 5 is broken and decayed, no dental abscess, no gum erythema. Skin: Warm, dry, no erythema, no rash. [] Back: No tenderness, no CVA tenderness. [] Extremities: No tenderness, no cyanosis, no clubbing, ROM intact, no edema. [] Neurologic: Alert and oriented X 3, normal motor function, normal sensory function, no focal deficits noted. [] Psychologic: Affect normal, judgement normal, mood normal. [] Current Patient Data: Vital Signs: Vital Signs Date Time Temp Pulse Resp B/P (MAP) Pulse Ox O2 Delivery O2 Flow Rate FiO2 07/07/21 15:12 59 18 124/80 (95) 98 Room Air 07/07/21 13:47 98.5 98.5 EKG: EKG: [] Radiology/Procedures: Radiology/Procedures: [] Course & Med Decision Making: Course & Med Decision Making Pertinent Labs and Imaging studies reviewed. (See chart for details) This is a 45-year-old female patient with a dental infection. Discharged on amoxicillin. Follow-up with dentist in 1 to 2 weeks Georgette Disclaimer: Georgette Disclaimer: This electronic medical record was generated, in whole or in part, using a voice recognition dictation system. Departure Departure Impression: Primary Impression: Dentalgia Additional Impression: Dental infection Disposition: HOME / SELF CARE / HOMELESS Condition: STABLE Referrals: TRINIDAD BUTLER (PCP) Follow-up with your dentist as soon as possible Patient Instructions: Dental Caries Additional Instructions: You have a dental infection. Follow-up with your dentist as soon as you can. Come back to the ED at any point symptoms worsen Scripts Hydrocodone Bit/Acetaminophen (HYDROCODONE-APAP 5-325 ) 1 Tab Tablet 1 TAB PO PRN Q6HRS PRN for PAIN, #8 TAB 0 Refills Prov: MAHENDRA PAZ COLLAR STARCHER 07/07/21 Naproxen (NAPROXEN) 500 Mg Tablet 1 TAB PO BID for pain, #14 TAB 0 Refills Prov: MAHENDRA PAZ COLLAR STARCHER 07/07/21 Amoxicillin (AMOXICILLIN) 500 Mg Tablet 1 TAB PO BID, #20 TAB Prov: MAHENDRA PAZ COLLAR STARCHER 07/07/21 MAHENDRA PAZ COLLAR STARCHER Jul 07, 2021 15:30
== END 2021-07-07 15:40 | disposition home or self-care (01) ==
LOC: ER 12:59
DX: K04.7 Periapical abscess without sinus (principal); J45.909 Unspecified asthma, uncomplicated; I10 Essential (primary) hypertension; G43.909 Migraine, unspecified, not intractable, without status migrainosus; G89.29 Other chronic pain; F17.200 Nicotine dependence, unspecified, uncomplicated; K58.9 Irritable bowel syndrome, unspecified
CPT/HCPCS: 99283